=== PATIENT | male | born 1945 | race African-American/Black ===

== ENCOUNTER 2016-12-27 05:30 | Inpatient (IN) | payer MEDICARE, OTHER ==
--- NOTE | ~2016-12-27 | HP ---
History And Physical [address] [place]. [address] NAME: Antonia RAND : 49 STATUS : ADM [place] PAT#: [id number] AGE: 71 ADM/REG DATE : 12/27/16 MR#: [id number] REPORT SERV DATE: 12/27/16 DICTATED BY: SUSAN MERINO DATE: 12/27/16 REPORT STATUS : Draft TRANSCRIBED BY: MODL DATE: 12/27/16 DATE OF ADMISSION: 12/27/2016 POINT OF ENTRY: [facility] Emergency Department. CHIEF COMPLAINT: Chest pain. HISTORY OF PRESENT ILLNESS: Mr. Rand is a 71-year-old gentleman with a history of hypertension, hyperlipidemia, COPD, on 4-5 L by nasal cannula, as well as non-insulin- dependent diabetes mellitus type 2, who presents to the emergency department with the acute onset of left-sided sharp, stabbing chest pain. The patient states he was in his usual state of health until about 11 p.m. on Saturday evening when he was woken from sleep with the acute onset of sharp and stabbing left-sided chest pain. He denied any associated radiation or worsening of his baseline shortness of breath, palpitations, diaphoresis, nausea, or vomiting. Initial evaluation in the emergency department revealed a blood pressure of 224/106 as well as a temperature of a 101 degrees Fahrenheit. His chest pain relieved after administration of aspirin as well as sublingual nitroglycerin. Further lab workup revealed a white count of 13,700, however, procalcitonin was negative, lactic acid was within normal limits. EKG and troponin were also nonischemic. Chest x-ray was clear. Urine was without evidence of infection. CTA of the chest was positive for COPD-type changes, but negative for PE or pneumonia-type changes. The patient was given some Tylenol as well, but continued to have a low-grade fever, and subsequently he was admitted to the Hospitalist Service for further evaluation and management. Again, the patient denies any current chest pain. He states that it went away with sublingual nitroglycerin. He denies any recent fevers, night sweats, chills, change in his baseline shortness of breath as well as cough and sputum production. Denies any abdominal pain, nausea, or vomiting. Does report some recent diarrhea. Denies any dysuria, melena, hematochezia, hemoptysis, or hematemesis. REVIEW OF SYSTEMS: Comprehensive review of systems is otherwise negative unless listed in history of present illness. PREVIOUS MEDICAL HISTORY: 1. Dbd-xyjcggv-hpikhqwzg diabetes mellitus type 2. 2. Hypertension. 3. Hyperlipidemia. 4. COPD, on 4-5 L by nasal cannula. 5. History of prostate cancer. 6. Osteoarthritis. 7. History of squamous cell carcinoma of the tongue. 8. Active tobacco abuse. History And Physical [address] [address] NAME: Antonia RAND : 49 STATUS : ADM Laurel PAT#: [id number] AGE: 71 ADM/REG DATE : 12/27/16 MR#: [id number] REPORT SERV DATE: 12/27/16 DICTATED BY: SUSAN MERINO DATE: 12/27/16 REPORT STATUS : Draft TRANSCRIBED BY: AGGIE DATE: 12/27/16 SURGICAL HISTORY: 1. Tongue biopsy. 2. Hernia surgery. ALLERGIES: NO KNOWN DRUG ALLERGIES. HOME MEDICATIONS: Pending at the time of dictation. SOCIAL HISTORY: He does smoke about a quarter to half pack daily. Denies alcohol. Denies illicits. He is currently retired. He used to work in construction. FAMILY MEDICAL HISTORY: Mother with history of stroke. Father with COPD. Siblings with diabetes. No known family history of coronary artery disease in immediate family members. LABS AND IMAGIN. White count is 13,700, hemoglobin is 12.9, hematocrit is 39.4, platelets are 201, and INR is 1.0. 2. Sodium is 143, potassium 3.6, chloride 107, carbon dioxide 30, BUN 12, creatinine 1.00, glucose is 114, calcium is 9.7, protein 7.1, albumin 3.3, bili is 0.2, ALT is 14, AST 13, alkaline phosphatase is 87. 3. Procalcitonin is 0.05, lactic acid is 1.1. 4. Troponin is 0.02. 5. Flu swab is pending. 6. Urinalysis: Spec gravity is 1.021. No evidence of any infection. 7. His chest x-ray per my review shows no acute cardiopulmonary abnormality. 8. EKG per my review shows normal sinus rhythm, occasional PVCs with lateral T-wave inversions. No evidence of any acute ischemia or infarction. 9. CTA of the chest was negative for PE or pneumonia. It did show some COPD-type changes. PHYSICAL EXAMINATION: VITAL SIGNS: Temperature is 101.0 degrees Fahrenheit, pulse is 72, respirations 23, saturating 98% on 4 L by nasal cannula. Blood pressure initially was 224/106, on recheck, it is now 172/93. Pulse of 87. GENERAL: The patient is awake, alert, and in no acute distress. Resting comfortably. He is a well-developed and well-nourished -[place] male. Family is at bedside HEENT: Atraumatic and normocephalic. Moist mucous membranes. Pupils are equal, round, and reactive to light and accommodation. Extraocular eye movements are intact. No scleral icterus. NECK: No jugular venous distention. No carotid bruits. CARDIAC: Regular rate and rhythm. No murmurs or gallops. Normal S1, S2. I am unable to reproduce any of the patient's reported chest pain by palpation over the left anterior chest. Lungs: Decreased breath sounds in the base as well as prolonged expiratory phase and diminished breath sounds throughout, however, no wheezes, rhonchi, or crackles appreciated. ABDOMEN: Obese, soft, nontender, and nondistended. Good bowel sounds. No rebound, guarding, or rigidity. History And Physical [address] [address] NAME: Antonia RAND : 49 STATUS : ADM Laurel PAT#: [id number] AGE: 71 ADM/REG DATE : 12/27/16 MR#: [id number] REPORT SERV DATE: 12/27/16 DICTATED BY: SUSAN MERINO DATE: 12/27/16 REPORT STATUS : Draft TRANSCRIBED BY: MODL DATE: 12/27/16 EXTREMITIES: Warm and well perfused. No cyanosis, clubbing, or edema. SKIN: Warm and dry. PSYCHIATRIC: Affect appropriate. NEUROLOGIC: Alert and oriented x3. Cranial nerves 2 through 12 are grossly intact. Speech is normal. Gait not assessed. ASSESSMENT: Mr. Rand is a 71-year-old gentleman, who presents with the acute onset of left-sided chest pain, now resolved. Also found to have evidence of systemic inflammatory response of unclear etiology. PROBLEM LIST: 1. Chest pain. 2. SIRS. 3. Hypertensive urgency. 4. Mrq-hlyffmv-uelnralee diabetes mellitus type 2. 5. COPD. PLAN: 1. Chest pain. The patient's chest pain has now resolved. EKG, initial cardiac enzymes are nonischemic. The patient does have multiple cardiac risk factors including diabetes, hypertension, hyperlipidemia, as well as active tobacco abuse. Therefore, we will admit the patient to the Hospitalist Service, trend out cardiac enzymes and order a stress test for him this morning accusing. Continue aspirin as well as some nitroglycerin for chest pain. 2. Systemic inflammatory response. Meets criteria with leukocytosis as well as fevers of unclear etiology. Chest x-ray, urinalysis, as well as CT of the chest were all unremarkable. Blood cultures are pending. Procalcitonin is negative as well as lactic acid level. Flu swab is pending. This is likely some kind of a viral infection. We will continue to monitor. Follow up blood cultures. Hold off any further antibiotics at this time. 3. Hypertensive urgency, elevated likely in the setting of chest pain, now much improved after resolution of patient's chest pain. Continue the patient's home medications, IV hydralazine p.r.n. for elevated blood pressure. 4. COPD, on 4 L by nasal cannula. I appreciate any evidence of acute exacerbation at this time. Continue to monitor. 5. Jzi-ohaygor-eepiwnruw diabetes mellitus type 2. Check hemoglobin A1c, place him on level 2 insulin sliding scale given recent CT of the chest. 6. DVT prophylaxis, Lovenox subcu. CODE STATUS: The patient wished to be full code. JCB/MODL Susan Merino MD History And Physical [address] [address] NAME: Antonia RAND Lexa : 49 STATUS : ADM Laurel PAT#: [id number] AGE: 71 ADM/REG DATE : 12/27/16 MR#: [id number] REPORT SERV DATE: 12/27/16 DICTATED BY: SUSAN MERINO DATE: 12/27/16 REPORT STATUS : Draft TRANSCRIBED BY: AGGIE DATE: 12/27/16 / [id number] CC: Enriqueta Haile DEEPAK K.
--- NOTE | ~2016-12-27 | DS ---
Discharge Summary [address] [place]. [address] NAME: Antonia RAND : 49 STATUS : ADM IN [facility]#: [id number] AGE: 71 ADM/REG DATE : 12/28/16 MR#: [id number] REPORT SERV DATE: 12/31/16 DICTATED BY: SOURAV COOLEY DATE: 12/31/16 REPORT STATUS : Draft TRANSCRIBED BY: MODL DATE: 12/31/16 ADMISSION DATE: 12/28/2016 DISCHARGE DATE: 12/31/2016 TRAVEL ACCOMMODATIONS RATER: Dr. Acharya. DIAGNOSES ON ADMISSION: 1. Chest pain. 2. Systemic inflammatory response syndrome. 3. Hypertensive urgency. 4. Cgv-pteuazo-kjtfimywv diabetes mellitus type 2. 5. Oxygen-dependent chronic obstructive pulmonary disease. DIAGNOSES ON DISCHARGE: 1. Chest pain present on admission, resolved. Negative stress test done by cured meats supervisor, Dr. Mckeon. No evidence of cardiac chest pain. Negative stress test. 2. Severe hypertension, uncontrolled, improved with addition of hydralazine and Imdur as well as carvedilol. The patient's blood pressure currently in the normal range. This morning after he received his medications was 110/80, then 144/67, it was very well controlled. 3. Chronic obstructive pulmonary disease exacerbation, resolved. Completed his steroids. 4. Left upper lobe acute infiltrate versus chronic changes favoring more acute infiltrate/pneumonia. Completed antibiotic course while inpatient, afebrile, no evidence of any fever. 5. Chronic obstructive pulmonary disease exacerbation present on admission, resolved. 6. Advanced chronic obstructive pulmonary disease, oxygen dependent. 7. Diabetes mellitus, controlled. CONSULTANTS ON THE CASE: Dr. Mckeon of Cardiology. IMAGING STUDIES DONE DURING THIS HOSPITALIZATION: CTA of the chest done on 12/27/2016: No pulmonary emboli. Parenchymal changes in the left upper lobe posterolaterally that may represent acute infiltrate versus chronic change. Acute infiltrate is favored. There are no prior examination. Significant amount of emphysematous changes. Echocardiogram done on 12/27/2016 showed normal left ventricular systolic function with calculated ejection fraction of 55% to 60%. Small area of inferobasilar hypokinesis, mildly dilated left-sided chambers. Normal right ventricular chamber size and systolic function. Mild aortic valvular regurgitation. Nuclear stress test, which was done on 12/28/2016 showed overall low risk vasodilator stress test. No evidence of ischemia. Chest x-ray done on 12/27/2016 showed linear densities in both lungs. Liner atelectasis versus scar. Discharge Summary [address] [place]. [address] NAME: Antonia RAND : 49 STATUS : ADM IN [facility]#: [id number] AGE: 71 ADM/REG DATE : 12/28/16 MR#: [id number] REPORT SERV DATE: 12/31/16 DICTATED BY: SOURAV COOLEY DATE: 12/31/16 REPORT STATUS : Draft TRANSCRIBED BY: MODAntonia DATE: 12/31/16 HISTORY OF PRESENT ILLNESS: Briefly, this is a very pleasant 71-year-old male, who was admitted by my colleague, Dr. Tariq, on 12/28/2016 with a complaint of chest pain, which was sharp in character, and was associated with breathing according to dictation of Dr. Tariq. Also his blood pressure was 224/106 and he had fever on admission of 101, according to Dr. Tariq's dictation. The patient was started on steroids for his COPD exacerbation as well as he was started on intravenous hydralazine. For the details, see history of present illness dictated by Dr. Tariq. HOSPITAL COURSE: Briefly, I saw the patient next day, he was afebrile, but the CT of the chest showed infiltrate in the left upper lobe which looked like pneumonia. The CT of the chest was discussed with our data conversion developer, Dr. Lawson. He thinks that this could represent early pneumonia, so the patient was started on intravenous Rocephin as well as he was on intravenous steroids which were switched to oral prednisone after two days, and the patient's cough and chest congestion resolved as well as his chest discomfort resolved. He was afebrile during his whole hospitalization and his blood culture has been negative. Regarding his chest pain. It was atypical and noncardiac, and the patient was evaluated by Dr. Mckeon, our cured meats supervisor, who recommended stress test. Nuclear stress test was negative, and Dr. Mckeon thinks that the patient's blood pressure needs to be controlled. This can cause stress on the heart and cause chest pain as well. The patient was started on oral hydralazine as well as he was started on carvedilol. I would like to mention that this patient is already on diltiazem ER 360 mg a day. He is on losartan 100 mg a day, so in addition to these, he was on clonidine at home, and his blood pressure was still uncontrolled, so we added hydralazine 50 mg p.o. three times daily, and we are monitoring his blood pressure for several days as well as on 12/29/2016 he had four beats of NSVT which were asymptomatic. This was evaluated by our cured meats supervisor, Dr. Kuo, and he recommended the patient to be started on Coreg, so we started the patient on Coreg 6.25 twice a day, and it was also recommended to decrease his clonidine since the patient is already on diltiazem as well as he is on Coreg, so we will decrease his clonidine to 0.1 mg three times a day, especially in the situation, then clonidine can cause rebound hypertension. His blood pressure was still elevated, so after hydralazine and carvedilol, Imdur was added to his blood pressure medication regimen and combination of Imdur and hydralazine basically help with his blood pressure. Today this morning, after he received his blood pressure medications, his blood pressure was 120/80, 144/67, 150/75. It is a very good a chief movement because for several days his blood pressure was elevated in 200s and was coming down only to 180s, so I had a long discussion with the patient and told him that he needs to continue his diltiazem 360 mg a day. He needs to continue his home losartan at 100 mg a day, but he needs to reduce his clonidine to 0.1 mg three times a day, and there are new prescription that he needs to start taking, which is hydralazine 50 mg three times a day, carvedilol 6.25 twice a day, and Imdur 30 mg twice a day. The patient was explained that he needs to recheck his blood pressure per his primary care physician, Dr. Isabel Mejia, and he has an appointment scheduled for 01/07/2017 at 3:15 p.m. Also, the patient was explained that clonidine can cause rebound hypertension, so if blood pressure will be controlled on this regimen, there is a possibility that clonidine may be also stopped. The patient already completed his steroids and he is not going to be on steroids anymore. He received 20 mg of prednisone today, so we hope that blood pressure also will become better since he Discharge Summary [address] [place]. [address] NAME: Antonia RAND : 49 STATUS : ADM IN PAT#: [id number] AGE: 71 ADM/REG DATE : 12/28/16 MR#: [id number] REPORT SERV DATE: 12/31/16 DICTATED BY: SOURAV COOLEY DATE: 12/31/16 REPORT STATUS : Draft TRANSCRIBED BY: AGGIE DATE: 12/31/16 is already off steroids, although he was on a small dose of steroids. The rest of the medications: Baby aspirin 80 mg daily was recommended. Continue Januvia 100 mg a day. Continue his Plaquenil 400 mg p.o. twice a day, which was given per his primary care physician, pravastatin 40 mg daily, Spiriva one capsule inhaled daily, and metformin 1000 mg twice a day. The patient was told to take either hydrocodone or tramadol, not to take both together. Continue albuterol inhaler 1 puff inhaled as needed as well as the patient needs to stop smoking. He does not need a nicotine patch, so he said he will stop smoking. For his COPD and emphysema, he will follow up with his primary care physician and data conversion developer. He has appointment scheduled with data conversion developer as well. He also needs to follow up with the cured meats supervisor, Dr. Mckeon, in three to four weeks in [facility]. Prescriptions are given for hydralazine 50 mg p.o. three times a day. Primary care physician may consider even go up on hydralazine 75 three times a day. Prescription given for clonidine 0.1 mg p.o. three times daily, carvedilol 6.25 mg p.o. twice daily, and Imdur 30 mg p.o. twice daily. The patient was discharged in stable condition. I spent 45 minutes on discharge. /MODL Sourav Cooley M.D. / [id number] CC: Enriqueta Haile Dr.
--- NOTE | ~2016-12-27 | CN ---
Consultation Report [id number] [place]. [address] NAME: Antonia RAND : 49 STATUS : ADM [place] PAT#: [id number] AGE: 71 ADM/REG DATE : 12/27/16 MR#: [id number] REPORT SERV DATE: 12/27/16 DICTATED BY: MANUEL JUAREZ DATE: 12/27/16 REPORT STATUS : Draft TRANSCRIBED BY: MODAntonia DATE: 12/27/16 DATE OF CONSULTATION: 12/27/2016 REASON FOR CONSULTATION: Chest pain. HISTORY OF PRESENT ILLNESS: Mr. Rand is a 71-year-old gentleman with a history of COPD, emphysema, squamous cell carcinoma of tongue status post resection (2015), and obesity, who presents to [facility] with chest pains in his left chest that started yesterday around 11 to 11:30 p.m. while he was sleeping. He states that the pain woke him from sleep. It has been on and off since 11 to 11:30 last night. He has not had complete resolution as of this morning. However, he had a chest x-ray that demonstrated pneumonia. He has been having a cough as well in the recent past two days. He otherwise has no complaints. He is functional under normal circumstances and does not have exertional symptoms typically. PAST MEDICAL HISTORY: As above. ALLERGIES: NO KNOWN DRUG ALLERGIES. SOCIAL HISTORY: The patient lives at home alone. He functions independently. He is a current tobacco user, denies drug or alcohol use currently. FAMILY HISTORY: Noncontributory for premature cardiovascular disease. HOME MEDICATIONS: 1. Albuterol. 2. Clonidine. 3. Diltiazem ER. 4. Hydrocodone. 5. Plaquenil. 6. Cozaar. 7. Metformin. 8. Pravastatin. 9. Sitagliptin. 10.Spiriva. 11.Ultram. REVIEW OF SYSTEMS: As above, all other systems are otherwise negative. PHYSICAL EXAMINATION: VITAL SIGNS: Blood pressure 124/106, pulse 72, and temperature 101.0. GENERAL: Obese, no acute distress, eating breakfast comfortably. NEURO: Awake, alert and oriented x3; no focal deficits, appropriate mood. HEENT: Moist mucous membranes, anicteric sclerae, no nasal discharge. Consultation Report [id number] [place]. [address] NAME: Antonia RAND : 49 STATUS : ADM [place] PAT#: [id number] AGE: 71 ADM/REG DATE : 12/27/16 MR#: [id number] REPORT SERV DATE: 12/27/16 DICTATED BY: MANUEL JUAREZ DATE: 12/27/16 REPORT STATUS : Draft TRANSCRIBED BY: AGGIE DATE: 12/27/16 NECK: No JVD, no carotid bruit. RESPIRATORY: Diminished breath sounds in the right lung, otherwise, clear to auscultation without wheezes, rales, or rhonchi. Normal work of breathing. CV: Regular rhythm, normal S1/S2, no murmurs, rubs or gallops. ABD: Soft, non-tender, non-distended, no rebound or guarding. EXT: No pitting edema, normal distal pulses. SKIN: Warm, dry and intact; no rash. PERTINENT TEST FINDINGS: Potassium 3.6, creatinine 1.0. White blood cell count 13.7, hemoglobin 12.9. Troponin 0.02. EKG with sinus rhythm and sinus arrhythmia. No ischemic ST/T changes are noted. No pathologic Q-waves are noted. An isolated PVC is seen. IMPRESSION AND PLAN: Mr. Rand is a 71-year-old gentleman with a history of diabetes, hypertension, hyperlipidemia, and obesity, who presents with left-sided chest pains on and off in the setting of pneumonia. I agree with treatment of his pneumonia as you are doing. In addition, his blood pressure is markedly high at 220 to 120 range. Therefore, it will be important to treat this so as to resolve hypertensive crisis, which may very well itself be causing chest pain. I do believe given his risk factors as well as symptoms, it would be prudent to check his stress MPI test once his blood pressure is under control and the pneumonia has been sufficiently treated. He is currently febrile, however, I will tentatively plan for a stress MPI tomorrow if his fever curve is broken. Otherwise, I am checking a fasting lipid profile and ruling him out for [place] today and will be helpful in his overall care. AYANNA/AGGIE Manuel Juarez MD / [id number] CC: Enriqueta Haile DEEPAK K.
[2016-12-27 04:21] LABS: BASOPHILS 0.2 %; BASOPHILS ABSOLUTE 0.03 10/3/uL (0.0-0.16); EOSINOPHILS 1.2 %; EOSINOPHILS ABSOLUTE 0.17 10/3/uL (0.0-0.53); ER CBC TAT 0 Hrs 03 Mins; HEMATOCRIT 39.4 % (40.0-51.0); HEMOGLOBIN 12.9 g/dL (13.6-17.8); IMMATURE GRANULOCYTES 0.2 %; IMMATURE GRANULOCYTES ABSOLUTE 0.03 10/3/uL (0.0-0.11); LYMPHOCYTES 8.1 %; LYMPHOCYTES ABSOLUTE 1.11 10/3/uL (0.67-4.30); MANUAL DIFF NO %; MEAN CORPUS HGB CONC 32.7 g/dL (32.0-36.0); MEAN CORPUSCULAR HEMOGLOB 28.7 pg (26.0-34.0); MEAN CORPUSCULAR VOLUME 87.6 fL (80-100); MEAN PLATELET VOLUME 9.9 fL (9.2-13.0); MONOCYTES 7.8 %; MONOCYTES ABSOLUTE 1.07 10/3/uL (0.21-1.20); NEUTROPHILS 82.5 %; NEUTROPHILS ABSOLUTE 11.26 10/3/uL (2.02-8.40); PLATELET COUNT 201 10/3/uL (150-400); RBC DISTRIBUTION WIDTH 15.9 % (12.0-16.0); WHITE BLOOD CELLS 13.7 10/3/uL (4.5-10.5)
[2016-12-27 04:29] LABS: PARTIAL THROMBO TIME 24.6 SEC (22.5-37.2); PROTIME (NOT ORD) 13.1 SEC (12.0-14.5)
[2016-12-27 04:37] LABS: ASCORBIC ACID (UR NOT ORDER) NEG (NEG); BILIRUBIN, URINE NEGATIVE (NEG); ER URINALYSIS TAT 0 Hrs 00 Mins; KETONE, URINE NEGATIVE (NEG); LEUKOCYTE ESTERASE(NOT OR NEG (NEG); NITRITE (URINE) NEG (NEG); WBC (NOT ORDERED) (RFLEX) 2 (0-5)
[2016-12-27 04:38] LABS: ALBUMIN 3.3 G/DL (3.5-5.0); ALKALINE PHOSPHATASE 87 U/L (45-117); BUN (BLOOD UREA NITROGEN) 12 MG/DL (6-23); CALCIUM, SERUM 9.7 MG/DL (8.5-10.4); CHEST PAIN PROFILE TAT 0 Hrs 20 Mins; CHLORIDE, SERUM 107 MMOL/L (96-112); CO2 (CARBON DIOXIDE) 30 MMOL/L (24-34); GFR AFRICAN AMERICAN 89 ML/MIN (>=60); GFR NON AFRICAN AMERICAN 76 ML/MIN (>=60); POTASSIUM, SERUM 3.6 MMOL/L (3.5-5.3); SGOT(AST) 13 U/L (5-40); SGPT(ALT) 14 U/L (5-65); SODIUM, SERUM 143 MMOL/L (135-148); TOTAL BILIRUBIN 0.2 MG/DL (0-1.2); TOTAL PROTEIN 7.1 G/DL (6.0-8.5); TROPONIN I 0.02 NG/ML (<0.05)
[2016-12-27 04:39] LABS: DIRECT BILIRUBIN < 0.1 MG/DL (0.0-0.4); GLUCOSE, SERUM 114 MG/DL (60-99); INDIRECT BILIRUBIN(NOT ORDER) 0.1 MG/DL (0.1-0.9); LACTATE 1.1 MMOL/L (0.3-2.4)
[~2016-12-27 05:30] MED LIST: CARDIZEM LA360 MG PO; CAT2 PO; COZ50 PO; GLUCPH PO; NORCO1 TA2 PO; PLAQ200B PO; PRAVACHOL40 MG PO; SPIRIVA INH; ULTRAM50 PO
[2016-12-27 05:37] LABS: PROCALCITONIN 0.05 ng/mL (<0.5)
[2016-12-27] MEDS ORDERED: NORCO1 TA2 PO (06:48)
[2016-12-27] MEDS ORDERED: ULTRAM50 PO (06:48)
[2016-12-27] MEDS ORDERED: JANUVIA100 MG PO (06:49)
[2016-12-27] MEDS ORDERED: GLUCPH PO (06:49)
[2016-12-27] MEDS ORDERED: PRAVACHOL40 MG PO (06:50)
[2016-12-27] MEDS ORDERED: TAZTIA X3 PO (06:50)
[2016-12-27] MEDS ORDERED: PLAQ200B PO (06:51)
[2016-12-27] MEDS ORDERED: COZAAR100 MG PO (06:51)
[2016-12-27] MEDS ORDERED: CAT2 PO (06:52)
[2016-12-27] MEDS ORDERED: SPIRIVA INH (06:52)
[2016-12-27] MEDS ORDERED: VENTOLIN HFA INH (06:53)
[2016-12-27 07:05] LABS: INFLUENZA A SCREEN NEGATIVE (NEGATIVE); INFLUENZA B SCREEN NEGATIVE (NEGATIVE)
[2016-12-27 08:57] LABS: CK-MB 2.1 NG/ML; CPK 133 U/L (0-200); TROPONIN I <0.02 NG/ML (<0.05)
[2016-12-27 08:58] LABS: B NATRIURETIC PEPTIDE (BNP) 98.6 PG/ML (< 100.0)
[2016-12-27 09:00] LABS: FREE T4 1.21 NG/DL (0.76-1.46); ULTRASENSITIVE TSH 0.317 MCIU/ML (0.358-3.740)
[2016-12-27 09:56] LABS: GLYCOHEMOGLOBIN (HbA1c) 6.1 % (4.7-6.1)
[2016-12-27 10:05] LABS: PROCALCITONIN 0.07 ng/mL (<0.5)
[2016-12-27 14:54] LABS: CK-MB 2.1 NG/ML; CPK 143 U/L (0-200); TROPONIN I 0.02 NG/ML (<0.05)
[2016-12-28 05:36] LABS: BASOPHILS 0.1 %; BASOPHILS ABSOLUTE 0.01 10/3/uL (0.0-0.16); EOSINOPHILS 0 %; HEMATOCRIT 39.4 % (40.0-51.0); HEMOGLOBIN 12.8 g/dL (13.6-17.8); IMMATURE GRANULOCYTES 0.2 %; IMMATURE GRANULOCYTES ABSOLUTE 0.03 10/3/uL (0.0-0.11); LYMPHOCYTES 3.7 %; LYMPHOCYTES ABSOLUTE 0.49 10/3/uL (0.67-4.30); MEAN CORPUS HGB CONC 32.5 g/dL (32.0-36.0); MEAN CORPUSCULAR HEMOGLOB 28.2 pg (26.0-34.0); MEAN CORPUSCULAR VOLUME 86.8 fL (80-100); MEAN PLATELET VOLUME 10.1 fL (9.2-13.0); MONOCYTES 3.3 %; MONOCYTES ABSOLUTE 0.44 10/3/uL (0.21-1.20); NEUTROPHILS 92.7 %; NEUTROPHILS ABSOLUTE 12.34 10/3/uL (2.02-8.40); PLATELET COUNT 196 10/3/uL (150-400); RBC DISTRIBUTION WIDTH 15.9 % (12.0-16.0); RED CELL COUNT 4.54 10/6/uL (4.7-6.1); WHITE BLOOD CELLS 13.3 10/3/uL (4.5-10.5)
[2016-12-28 05:42] LABS: MANUAL DIFF NO %
[2016-12-28 05:43] LABS: BUN (BLOOD UREA NITROGEN) 15 MG/DL (6-23); CALCIUM, SERUM 9.5 MG/DL (8.5-10.4); CHLORIDE, SERUM 106 MMOL/L (96-112); CHOL/HDL RATIO(NOT ORDER) 1.5 (0-5); CHOLESTEROL 122 MG/DL (< 200); CO2 (CARBON DIOXIDE) 27 MMOL/L (24-34); CREATININE 0.79 MG/DL (0.70-1.30); GFR AFRICAN AMERICAN 106 ML/MIN (>=60); GFR NON AFRICAN AMERICAN 92 ML/MIN (>=60); HDL CHOLESTEROL 81 MG/DL (> 39); LDL CHOLESTEROL 30 MG/DL (< 130); NON-HDL CHOLESTEROL 41 MG/DL (< 160); SODIUM, SERUM 141 MMOL/L (135-148); TRIGLYCERIDE 58 MG/DL (< 150)
[2016-12-28 05:48] LABS: GLUCOSE, SERUM 169 MG/DL (60-99)
[2016-12-29 04:26] LABS: CALCIUM, SERUM 9.3 MG/DL (8.5-10.4); CHLORIDE, SERUM 107 MMOL/L (96-112); CO2 (CARBON DIOXIDE) 31 MMOL/L (24-34); CREATININE 0.86 MG/DL (0.70-1.30); GFR AFRICAN AMERICAN 103 ML/MIN (>=60); GFR NON AFRICAN AMERICAN 88 ML/MIN (>=60); GLUCOSE, SERUM 188 MG/DL (60-99); POTASSIUM, SERUM 4.3 MMOL/L (3.5-5.3); SODIUM, SERUM 143 MMOL/L (135-148)
[2016-12-29 04:27] LABS: BUN (BLOOD UREA NITROGEN) 19 MG/DL (6-23)
[2016-12-31] MEDS ORDERED: APRES50 PO (16:51)
[2016-12-31] MEDS ORDERED: COREG6 PO (16:52)
[2016-12-31] MEDS ORDERED: IMDUR30 PO (16:52)
[2016-12-31] MEDS ORDERED: ASAB PO (16:53)
== END 2016-12-31 18:27 | disposition home or self-care (01) | DRG 304 ==
LOC: ER 05:30 → 5NO 06:51
PROVIDERS: Hospitalist; Internal Medicine; Specialist
DX: I16.0 Hypertensive urgency (principal); J18.9 Pneumonia, unspecified organism; Z99.81 Dependence on supplemental oxygen; J44.1 Chronic obstructive pulmonary disease with (acute) exacerbation; E78.5 Hyperlipidemia, unspecified; E11.9 Type 2 diabetes mellitus without complications; F17.210 Nicotine dependence, cigarettes, uncomplicated
CPT/HCPCS: 71010; 71275; 78452; 80048; 80061; 80076; 81001; 82550; 82553; 82962; 83036; 83605; 83735; 83880; 84145; 84439; 84443; 84484; 85025; 85610; 85730; 87040; 87328; 87329; 87493; 87493-59; 87804; 93005; 93017; 99285; A9270-GY; A9502; C8929; J0360; J0456; J2785; J2920; Q9957; Q9967